=== PATIENT | female | born 1990 | race Caucasian/White ===

== ENCOUNTER 2017-03-14 17:03 | Emergency (ER) | payer BC ==
--- NOTE | 2017-03-14 17:23 | UC ---
Ear Complaint HPI - History of Current Complaint Stated Complaint: RIGHT EAR PAIN/PAIN IN RIGHT BREAST Time Seen by Provider: 03/14/17 17:22 Discharge - Discharge Plan Condition: Stable Disposition: HOME Patient Education Materials: Earache (ED)
[2017-03-14 17:46] VITALS: BP 149/81
--- NOTE | 2017-03-14 17:46 | UC ---
Ear Complaint HPI - HPI Summary HPI Summary: patient has had some pain in the right ear, lymph node swelling behind the right ear, and in the arm pit, a lump noted in right breast 2 days ago, family HX of breast CA - History of Current Complaint Chief Complaint: UCEar Stated Complaint: RIGHT EAR PAIN/PAIN IN RIGHT BREAST Time Seen by Provider: 03/14/17 17:22 Hx Obtained From: Patient Hx Last Menstrual Period: 02/26/17 ?: No Onset/Duration: Sudden Onset, Lasting Days Severity Initially: Moderate Severity Currently: Moderate Aggravating Factors: Nothing Alleviating Factors: Nothing Associated Signs/Symptoms: Positive: URI Symptoms - Allergies/Home Medications Allergies/Adverse Reactions: Allergies Allergy/AdvReac Type Severity Reaction Status Date / Time No Known Allergies Allergy Verified 03/14/17 17:30 Home Medications: Home Medications FLUoxetine* [PROzac*] 50 mg PO QPM 03/14/17 [History Confirmed 03/14/17] Ibuprofen TAB* [Motrin TAB* 600 MG] 600 mg PO Q12H PRN 03/14/17 [History Confirmed 03/14/17] Oxcarbazepine [Trileptal 600 MG tab] 900 mg PO QPM 03/14/17 [History Confirmed 03/14/17] PMH/Surg Hx/FS Hx/Imm Hx Previously Healthy: Yes - Surgical History Surgical History: Yes Surgery Procedure, Year, and Place: cholecystectomy 11/2011, 05/03/13 - Family History Known Family History: Positive: Other - breast CA, mother and Gramma - Social History Alcohol Use: Occasionally Substance Use Type: None Smoking Status (MU): Light Every Day Tobacco Smoker Review of Systems Constitutional: Negative Skin: Other - lump in breast Eyes: Negative ENT: Ear Ache Respiratory: Negative Cardiovascular: Negative Gastrointestinal: Negative Genitourinary: Negative Motor: Negative Neurovascular: Negative Musculoskeletal: Negative Neurological: Negative Psychological: Negative All Other Systems Reviewed And Are Negative: Yes Physical Exam Triage Information Reviewed: Yes Appearance: Well-Appearing, Well-Nourished, Pain Distress Vital Signs: Initial Vital Signs Temp 98.5 F 03/14/17 17:21 Pulse 66 03/14/17 17:21 Resp 18 03/14/17 17:21 BP 149/81 03/14/17 17:21 Vital Signs Reviewed: Yes Eye Exam: Normal Eyes: Positive: Conjunctiva Clear ENT: Positive: Pharyngeal erythema, TM bulging Dental Exam: Normal Neck exam: Normal Neck: Positive: Supple, Nontender, Enlarged Nodes @ - right cervical, axilla, movable lump in lateral right breast, tender to touch, no dippling of skin, no unusal discharge from nipple, Respiratory Exam: Normal Respiratory: Positive: Chest non-tender, Lungs clear, Normal breath sounds Cardiovascular Exam: Normal Cardiovascular: Positive: RRR, No Murmur, Pulses Normal Abdominal Exam: Normal Abdomen Description: Positive: Nontender, No Organomegaly, Soft Bowel Sounds: Positive: Present Musculoskeletal Exam: Normal Musculoskeletal: Positive: Strength Intact, ROM Intact, No Edema Neurological Exam: Normal Neurological: Positive: Alert, Muscle Tone Normal Psychological Exam: Normal Skin Exam: Normal Ear Complaint Course/Dx - Course Course Of Treatment: hx obtained, exam performed ,meds reviewed, recommend follow up with PCP for breast follow up, recommend decongestant for ear pressure , and 3 days of predniosne given - Differential Dx/Diagnosis Differential Diagnosis/HQI/PQRI: Otitis Externa, Otitis Media, URI Provider Diagnoses: ear ache. lymphadenopathy Discharge - Discharge Plan Condition: Stable Disposition: HOME Patient Education Materials: Earache (ED) Additional Instructions: 1. First, take a decongestant for the ear pressure, warm compresses and increase fluid intake 2. I recommend follow up for breast care due to the family history of breast Cancer. the lump does feel like a lymph node, howver keep monitoring and if persists follow up.
== END 2017-03-14 18:01 | disposition home or self-care (01) ==
LOC: UCCORT 17:03
DX: H66.91 Otitis media, unspecified, right ear (principal); H60.91 Unspecified otitis externa, right ear; R59.0 Localized enlarged lymph nodes; N63 Unspecified lump in breast; Z80.3 Family history of malignant neoplasm of breast
CPT/HCPCS: 99202; G0463

== ENCOUNTER 2018-11-04 21:51 | Emergency (ER) | payer OTHER ==
--- NOTE | 2018-11-04 22:12 | UC ---
Palpitation/Dysrhythmia HP - HPI Summary HPI Summary: C/O palpitations with pauses this morning. Has been worsening throughout the day with some chest pressure, SOB and dizziness. Feels better lying down. - History of Current Complaint Stated Complaint: SOB,HEART PALPITATION,DIZZY Time Seen by Provider: 11/04/18 21:52 Hx Obtained From: Patient Hx Last Menstrual Period: 02/26/17 ?: No Onset/Duration: Sudden Onset, Lasting Hours - 14 Timing: Intermittent Episodes Lasting: - seconds Severity Initially: Mild Severity Currently: Moderate Character: Fluttering, Skipped Beats Aggravating Factor(s): Exertion Alleviating Factor(s): Rest Associated Signs & Symptoms: Positive: Lightheadedness, Dizzy, Chest Pain, Shortness of Breath - Risk Factors Cardiac: Smoking Pulmonary Embolism: Smoking - Allergy/Home Medications Allergies/Adverse Reactions: Allergies Allergy/AdvReac Type Severity Reaction Status Date / Time No Known Allergies Allergy Verified 11/04/18 22:01 Home Medications: Home Medications Etonogestrel [Nexplanon] 68 mg IMPLANT DAILY 11/04/18 [History Confirmed ] PMH/Surg Hx/FS Hx/Imm Hx Previously Healthy: Yes - Surgical History Surgical History: Yes Surgery Procedure, Year, and Place: cholecystectomy 11/2011, 05/03/13 - Family History Known Family History: Positive: Cardiac Disease, Hypertension, Other - breast CA , mother and Gramma - Social History Occupation: Employed Full-time Lives: With Family Alcohol Use: Occasionally Substance Use Type: None Smoking Status (MU): Light Every Day Tobacco Smoker Cessation Counseling: Patient Advised to Stop Review of Systems All Other Systems Reviewed And Are Negative: Yes Respiratory: Positive: Shortness Of Breath Cardiovascular: Positive: Palpitations, Chest Pain Is Patient Immunocompromised?: No Physical Exam Triage Information Reviewed: Yes Appearance: Well-Appearing, No Pain Distress, Well-Nourished Vital Signs Reviewed: Yes Eyes: Positive: Conjunctiva Clear ENT: Positive: Pharynx normal, TMs normal Neck exam: Normal Respiratory Exam: Normal Cardiovascular Exam: Normal Abdomen Description: Positive: No Organomegaly. Negative: Nontender - tender epigastric and bilateral lower abdoment, Peritoneal Signs Bowel Sounds: Positive: Present Musculoskeletal Exam: Normal Neurological Exam: Normal Psychological Exam: Normal Skin Exam: Normal Diagnostics - EKG Cardiac Rate: NL Cardiac Rhythm: Sinus: Normal Ectopy: None ST Segment: Non-Specific - anteroseptal ? ischemic Summary of EKG Findings: possible anteroseptal ischemia Palpitations Course/Dx - Differential Dx/Diagnosis Differential Diagnosis/HQI/PQRI: Cardiomyopathy, Congestive Heart Failure, Coronary Artery Disease Provider Diagnosis: Palpitations, Chest pain, Abnormal EKG - Physician Notifications Discussed Patient Care With: Edgar Rao Time Discussed With Above Provider: 22:19 Instructed by Provider To: Transfer - To [facility] Discharge - Sign-Out/Discharge Documenting (check all that apply): Patient Departure All imaging exams completed and their final reports reviewed: No Studies - Discharge Plan Condition: Guarded Disposition: TRANS HIGHER LVL OF CARE FAC Referrals: [facility] [Primary Care Provider] - - Billing Disposition and Condition Condition: GUARDED Disposition: Trans Higher Lvl of Care Fac
[2018-11-04 22:20] VITALS: BP 123/78
[2018-11-04] MEDS ORDERED: D5W 1/2 NS 1000 ML BAG* 1,000 ML IV SCH (23:00)
== END 2018-11-04 22:28 | disposition short-term general hospital (02) ==
LOC: UCCORT 21:51
DX: R00.2 Palpitations (principal); R07.9 Chest pain, unspecified; R94.31 Abnormal electrocardiogram [ECG] [EKG]; R42 Dizziness and giddiness; R06.02 Shortness of breath; R09.89 Other specified symptoms and signs involving the circulatory and respiratory systems; F17.290 Nicotine dependence, other tobacco product, uncomplicated; R10.814 Left lower quadrant abdominal tenderness; R10.813 Right lower quadrant abdominal tenderness; R10.816 Epigastric abdominal tenderness
CPT/HCPCS: 93005; 96360; 99213; G0463

== ENCOUNTER 2019-02-16 12:41 | Emergency (ER) | payer MEDICAID, OTHER ==
[2019-02-16 13:01] VITALS: BP 123/81
--- NOTE | 2019-02-16 13:06 | UC ---
Back Pain HPI - HPI Summary HPI Summary: 28-year-old female presents with back pain. Pain started about 0530 today. c/o Lower back pain, L side and it radiates down her L leg since she woke up this morning. She denies any recent injury or fall. Has history of DDD and goes to [facility] and [facility] and has had [facility] in the past and previously taken tramadol, gabapentin, APAP and Motrin. Motrin 800 mg today with no help at noon. Pain 06/07. Has had this previous. No foot drop. No incontinence. 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 Not sure if picking up her dog last night caused these symptoms who is About 30 pounds. Needs to stay still and no pain but with any movement of leg left causes pain and muscle spasms - History of Current Complaint Chief Complaint: UCBackPain Stated Complaint: BACK/LEFT LEG PAIN Time Seen by Provider: 02/16/19 13:03 Hx Obtained From: Patient Hx Last Menstrual Period: 02/12/19 pt also has Nexplanon implant Onset/Duration: Sudden Onset Pain Intensity: 10 - Risk Factors Cauda Equina Risk Factors: Negative, Lower Extemity Numbness - Allergies/Home Medications Allergies/Adverse Reactions: Allergies Allergy/AdvReac Type Severity Reaction Status Date / Time No Known Allergies Allergy Verified 02/16/19 13:01 Home Medications: Home Medications Ibuprofen TAB* [Motrin TAB* 800 MG] 800 mg PO Q6H PRN 02/16/19 [History Confirmed 02/16/19] PMH/Surg Hx/FS Hx/Imm Hx Previously Healthy: Yes Psychological History: Anxiety - Surgical History Surgical History: Yes Surgery Procedure, Year, and Place: cholecystectomy 11/2011, 05/03/13 - Family History Known Family History: Positive: Cardiac Disease, Hypertension, Other - breast CA , mother and Gramma - Social History Occupation: Employed Part-time Alcohol Use: Rare Substance Use Type: None Smoking Status (MU): Heavy Every Day Tobacco Smoker Type: Cigarettes Amount Used/How Often: 1/2 ppd Length of Time of Smoking/Using Tobacco: since age 23 Have You Smoked in the Last Year: Yes Review of Systems All Other Systems Reviewed And Are Negative: Yes Musculoskeletal: Positive: Arthralgia, Decreased ROM. Negative: Edema Neurological: Positive: Numbness Is Patient Immunocompromised?: No Physical Exam Triage Information Reviewed: Yes Appearance: Well-Appearing, Pain Distress - moderate Vital Signs: Initial Vital Signs Temp 98.4 F 02/16/19 12:53 Pulse 87 02/16/19 12:53 Resp 18 02/16/19 12:53 BP 123/81 02/16/19 12:53 Pulse Ox 100 02/16/19 12:53 Vital Signs Reviewed: Yes Eye Exam: Normal ENT Exam: Normal Dental Exam: Normal Neck exam: Normal Neck: Positive: 1 Respiratory Exam: Normal Cardiovascular Exam: Normal Musculoskeletal Exam: Normal Musculoskeletal: Positive: Strength Intact, ROM Limited @, Other: - (+) SLR on the left. Sensation intact bilaterally. Strength 5 out of 5 bilaterally. Any movement of the left lower extremity elicits low back pain. Positive for left paraspinal tenderness on the lumbar spine L3 to 5. Also was tenderness of the left PSIS to palpation with hypertonicity of muscle around that lower lumbar spine. No spinous process tenderness. No step-off. No foot drop. Can raise toes to the og.. Negative: Edema @ Neurological Exam: Normal Psychological Exam: Normal Skin Exam: Normal Back Pain Course/Dx - Course Course Of Treatment: 28-year-old female with history of chronic back pain. She in the past has had medications as well as [facility] [place] [facility]. Likely back spasm or potential herniated disc occurring at this time. No foot drop. No unconscious. No red flags.*Muscle relaxer for muscle spasm as well as prednisone for sciatica symptoms. Continue with [id number] medications as needed. No for work given. Resident developed reflux ago emergency room immediately. Advised to follow-up with her specialist NICOLASA. She is aware and agreeable. She will culture leaves here to get back into her specialist . Patient aware and agreeable to plan and medication side effects - Differential Dx/Diagnosis Differential Diagnosis/HQI/PQRI: Arthritis, Compressive Cord Syndrome, Herniated Disc, Strain, Sprain Provider Diagnosis: Sciatica, Muscle spasm Discharge - Sign-Out/Discharge Documenting (check all that apply): Patient Departure All imaging exams completed and their final reports reviewed: No Studies - Discharge Plan Condition: Good Disposition: HOME Prescriptions: Cyclobenzaprine TAB* [Flexeril 10 MG TAB*] 10 mg PO BID PRN #10 tab PRN Reason: Spasms predniSONE [Prednisone 20 MG TAB] 20 mg PO BID #10 tablet Patient Education Materials: Sciatica (ED) Forms: *Work Release Referrals: No Primary Care Phys,NOPCP [Primary Care Provider] - 3 Days Additional Instructions: Please follow up with your Pain Specialist at [facility] or [facility] - Billing Disposition and Condition Condition: GOOD Disposition: Home
== END 2019-02-16 13:37 | disposition home or self-care (01) ==
LOC: UCCORT 12:41
DX: M54.30 Sciatica, unspecified side (principal); M62.830 Muscle spasm of back; F17.210 Nicotine dependence, cigarettes, uncomplicated
CPT/HCPCS: 99212; G0463

== ENCOUNTER 2019-10-03 13:04 | Emergency (ER) | payer MEDICAID, OTHER ==
[2019-10-03 13:28] VITALS: BP 121/72
--- NOTE | 2019-10-03 13:45 | UC ---
Upper Extremity HPI - HPI Summary HPI Summary: right arm pain x 2 weeks pain is at the ulnar surface , going from the elbow radiating to right hand pain is sharp / shooting , 6 out of 10 , worse with movement, and lifting better with rest, numbness of right hand / fingers 4 anf 5 no known injury - History of Current Complaint Chief Complaint: UCUpperExtremity Stated Complaint: RT ARM INJURY Time Seen by Provider: 10/03/19 13:24 Hx Obtained From: Patient Hx Last Menstrual Period: 2 weeks ago ?: No Onset/Duration: Gradual Onset, Lasting Weeks - 2, Still Present Severity Initially: Moderate Severity Currently: Moderate Pain Intensity: 5 Location Of Pain: Is Discrete @ - right arm Character: Sharp, Aching, Burning Aggravating Factor(s): Movement, Lifting, Flexion, Extension Alleviating Factor(s): Rest Associated Signs And Symptoms: Positive: Weakness, Numbness/Tingling. Negative : Swelling, Redness, Bruising, Fever - Allergies/Home Medications Allergies/Adverse Reactions: Allergies Allergy/AdvReac Type Severity Reaction Status Date / Time No Known Allergies Allergy Verified 10/03/19 13:22 PMH/Surg Hx/FS Hx/Imm Hx - Additional Past Medical History Additional PMH: unstable mood, OCD, DJD - Surgical History Surgical History: Yes Surgery Procedure, Year, and Place: cholecystectomy 11/2011, 05/03/13 - Family History Known Family History: Positive: Cardiac Disease, Hypertension, Other - breast CA , mother and Gramma - Social History Alcohol Use: Rare Substance Use Type: None Smoking Status (MU): Light Every Day Tobacco Smoker Type: Cigarettes Amount Used/How Often: 6 cigarettes daily Length of Time of Smoking/Using Tobacco: since age 23 Have You Smoked in the Last Year: Yes Review of Systems All Other Systems Reviewed And Are Negative: Yes Is Patient Immunocompromised?: No Physical Exam Triage Information Reviewed: Yes Appearance: Well-Appearing, No Pain Distress, Well-Nourished Vital Signs: Initial Vital Signs Temp 98.5 F 10/03/19 13:24 Pulse 59 10/03/19 13:24 Resp 14 10/03/19 13:24 BP 121/72 10/03/19 13:24 Pulse Ox 100 10/03/19 13:24 Vital Signs Reviewed: Yes Eye Exam: Normal Eyes: Positive: Conjunctiva Clear ENT: Positive: Normal ENT inspection, Hearing grossly normal, Pharynx normal Neck: Positive: Supple Respiratory: Positive: Chest non-tender, Lungs clear, Normal breath sounds Cardiovascular: Positive: RRR, No Murmur, Pulses Normal Musculoskeletal: Positive: Other: - right arm: no swelling, no erythea, diffuse tenderness , normal ROM , normal strength Upper Extremity Course/Dx - Differential Dx/Diagnosis Provider Diagnosis: Ulnar nerve entrapment at elbow Discharge ED - Sign-Out/Discharge Documenting (check all that apply): Patient Departure All imaging exams completed and their final reports reviewed: No Studies - Discharge Plan Condition: Stable Disposition: HOME Prescriptions: predniSONE [Prednisone 20 MG TAB] 20 mg PO BID #10 tablet Patient Education Materials: Cubital Tunnel Syndrome (ED) Referrals: No Primary Care Phys,NOPCP [Primary Care Provider] - 2 Weeks - Billing Disposition and Condition Condition: STABLE Disposition: Home
== END 2019-10-03 13:45 | disposition home or self-care (01) ==
LOC: UCCORT 13:04
DX: G56.21 Lesion of ulnar nerve, right upper limb (principal); F17.210 Nicotine dependence, cigarettes, uncomplicated
CPT/HCPCS: 99212; G0463

== ENCOUNTER 2019-10-06 19:37 | Emergency (ER) | payer OTHER ==
[2019-10-06] MEDS ORDERED: Ibuprofen TAB* 600 MG PO ONE (19:50)
--- NOTE | 2019-10-06 19:56 | UC ---
Lower Extremity/Ankle HPI - HPI Summary HPI Summary: 28-year-old woman comes in with a chief complaint of right foot pain. Just prior to arrival she tripped while running and felt her great toe going the wrong direction. Kids pain at the great toe and also in the first metatarsal. Palpation and weightbearing makes the pain worse. Rest and not weightbearing decrease the pain. - History of Current Complaint Stated Complaint: RIGHT FOOT INJURY Time Seen by Provider: 10/06/19 19:48 Hx Last Menstrual Period: 2 weeks ago - Allergies/Home Medications Allergies/Adverse Reactions: Allergies Allergy/AdvReac Type Severity Reaction Status Date / Time No Known Allergies Allergy Verified 10/06/19 20:03 Home Medications: Home Medications predniSONE 20 mg TAB [Deltasone 20 MG TAB*] 20 mg PO DAILY 10/06/19 [History Confirmed 10/06/19] PMH/Surg Hx/FS Hx/Imm Hx Previously Healthy: Yes - Surgical History Surgical History: Yes Surgery Procedure, Year, and Place: cholecystectomy 11/2011, 05/03/13 - Family History Known Family History: Positive: Cardiac Disease, Hypertension, Other - breast CA , mother and Gramma - Social History Alcohol Use: Rare Substance Use Type: None Smoking Status (MU): Light Every Day Tobacco Smoker Type: Cigarettes Amount Used/How Often: 6 cigarettes daily Length of Time of Smoking/Using Tobacco: since age 23 Have You Smoked in the Last Year: Yes Review of Systems All Other Systems Reviewed And Are Negative: Yes Constitutional: Positive: Negative Skin: Positive: Negative Eyes: Positive: Negative ENT: Positive: Negative Respiratory: Positive: Negative Cardiovascular: Positive: Negative Gastrointestinal: Positive: Negative Motor: Positive: Negative Neurovascular: Positive: Negative Musculoskeletal: Positive: Other: - SEE HPI Neurological: Positive: Negative Psychological: Positive: Negative Is Patient Immunocompromised?: No Physical Exam Triage Information Reviewed: Yes Appearance: Well-Appearing, Well-Nourished, Pain Distress - MILD WITH ROM AND EXAM OF RT FOOT Vital Signs Reviewed: Yes Eye Exam: Normal Eyes: Positive: Conjunctiva Clear Neck: Positive: Supple Respiratory: Positive: No respiratory distress Musculoskeletal: Positive: Other: - Tender to palpation right great toe and first metatarsal. Normal capillary refill normal sensation. Normal range of motion. Ankle is nontender to palpation with full range of motion the rest the foot is nontender to palpation normal dorsalis pedis pulse Achilles tendon is intact. Neurological: Positive: Alert Psychological: Positive: Age Appropriate Behavior Skin Exam: Normal Lower Extremity Course/Dx - Course Course Of Treatment: I discussed the x-rays with the patient. I do not see any fractures. Radiologist reading is pending. Plan is ice anti-inflammatories postop shoe weightbearing as tolerated. If the radiologist sees fracture patient will need to follow-up with orthopedics. If the foot is not completely improved patient will also follow-up with orthopedics. - Differential Dx/Diagnosis Provider Diagnosis: Right foot sprain Discharge ED - Sign-Out/Discharge Documenting (check all that apply): Patient Departure All imaging exams completed and their final reports reviewed: No - Discharge Plan Condition: Stable Disposition: HOME Patient Education Materials: Foot Sprain (ED) Referrals: Kev Hampton MD [Medical Doctor] - Additional Instructions: FOLLOW UP WITH DR HAMPTON, ORTHOPEDICS, IF NOT COMPLETELY IMPROVED. Final radiologist reading of the x-ray is pending. If a fracture is seen we will contact you and you will need to follow-up with orthopedics. If the injury is not completely improved follow-up with orthopedics. GET RECHECKED SOONER IF WORSE OR ANY QUESTIONS OR CONCERNS. - Billing Disposition and Condition Condition: STABLE Disposition: Home
[2019-10-06 20:04] VITALS: BP 109/59
--- NOTE | 2019-10-07 08:12 | UC ---
- Progress Note Progress Note: Negative fracture, no change in treatment plan. [employer]: Felipe Walden Daniel, ([id number]) [employer] Goods Tester: SANGEETHA ( GORDONANCE) Report Date: 10/07/2019 07:45:00 Report Status: Final ====== Start of Report Content Patient Name: JACKIE CHRISTOPHER Medical Record# : [id number] Ordering Physician: Burton aRnd MD Acct.#: [id number] : 1990 Age: 28 Sex: F Location: [facility] [place] Exam Date: 10/06/191947 ADM Status: [facility] Order Information: FOOT RIGHT 3+ VWS Accession Number: [id number] CPT: 82211 HISTORY: PAIN GREAT TOE/1ST MT S/P INJURY . COMPARISONS: None relevant available at the time of dictation. VIEWS: 3, Frontal, lateral, and oblique views of the right foot FINDINGS: BONE DENSITY: Normal. BONES: There is no displaced fracture. JOINTS: There is no arthropathy. ALIGNMENT: There is no dislocation. SOFT TISSUES: Unremarkable. OTHER FINDINGS: None. IMPRESSION: NO ACUTE OSSEOUS INJURY. IF SYMPTOMS PERSIST, RECOMMEND REPEAT IMAGING. R0 Preliminary Imaging Read R0 <Electronically signed by Felipe Walden MD in OV> 05/18 Dictated By: Felipe Walden MD Dictated Date/Time: 10/07/19740 Transcribed Date/Time: 10/07/19740 Copy to: CC:No Primary Care Phys, NOPCP ; Burton Rand MD Imaging - [facility] [address] [address] ph ([phone]) ph ([phone]) ([phone]) ==== End of Report Content Course/Dx - Diagnoses Provider Diagnoses: Right foot sprain Discharge ED - Sign-Out/Discharge Documenting (check all that apply): Post-Discharge Follow Up All imaging exams completed and their final reports reviewed: Yes - Discharge Plan Condition: Stable Disposition: HOME Patient Education Materials: Foot Sprain (ED) Referrals: Kev Hampton MD [Medical Doctor] - Additional Instructions: FOLLOW UP WITH DR HAMPTON, ORTHOPEDICS, IF NOT COMPLETELY IMPROVED. Final radiologist reading of the x-ray is pending. If a fracture is seen we will contact you and you will need to follow-up with orthopedics. If the injury is not completely improved follow-up with orthopedics. GET RECHECKED SOONER IF WORSE OR ANY QUESTIONS OR CONCERNS. - Billing Disposition and Condition Condition: STABLE Disposition: Home
== END 2019-10-06 20:19 | disposition home or self-care (01) ==
LOC: UCCORT 19:37
DX: S93.601A Unspecified sprain of right foot, initial encounter (principal); F17.210 Nicotine dependence, cigarettes, uncomplicated; W18.40XA Slipping, tripping and stumbling without falling, unspecified, initial encounter; Y93.02 Activity, running; Y92.9 Unspecified place or not applicable
CPT/HCPCS: 99213; A9270-GY; G0463